=== PATIENT | female | born 1965 | race Caucasian/White ===

== ENCOUNTER 2019-05-09 05:58 | Emergency (ER) | payer OTHER, SELFPAY ==
--- NOTE | 2019-05-09 06:11 | W.ED.GENADLT ---
HPI - General Adult General: Chief complaint: Abdominal Pain Stated complaint: Side pain Time Seen by Provider: 05/09/19 06:03 History of Present Illness: HPI narrative: 53-year-old female presents complaining of intermittent abdominal cramping pain she describes as very severe she denies any medication melena hematemesis coffee-ground emesis she is very nauseated but is not had any vomiting. She denies dysuria urgency or frequency no hematuria. Has been intermittent the last couple days she did have a bowel movement yesterday. No one else in the home is been sick. She not had any diarrhea. Onset (ago): day(s) Location: abdomen Radiation: back Severity: severe Quality: aching Pain Consistency: intermittent Relieving factors: rest Exacerbating factors: eating Associated symptoms: Reports nausea; Deny chest pain, dyspnea, malaise, rash or vomiting Review of Systems Const: Denies: fever, chills, body aches, change in appetite, fatigue or malaise ENMT: Denies: throat pain, ear pain, nasal discharge or nasal congestion Card: Denies: chest pain, edema, shortness of breath on exertion or shortness of breath when lying down Resp: Denies: shortness of breath, productive cough or non-productive cough GI: Reports: abdominal pain, nausea, constipation and bloating; Denies: vomiting, vomiting blood, coffee grounds in vomit, diarrhea, blood in stool or black tarry stool : Denies: flank pain, difficulty urinating, painful urination, urinary frequency or urinary urgency Skin/Breast: Denies: rash or itching PFSH ED PFSH: Social History Smoking and tobacco status: current every day smoker Physical Exam Const: COMMON NORMALS: no apparent distress GENERAL APPEARANCE: cooperative and comfortable ORIENTATION/CONSCIOUSNESS: Yes awake, Yes oriented to person, Yes oriented to place and Yes oriented to time HENMT: COMMON NORMALS: normocephalic, head/scalp atraumatic, hearing grossly normal bilaterally, external ears normal, EAC's normal, TM's normal bilaterally, nasal mucous membranes and turbinates normal, moist oral mucous membranes and oropharynx normal HEAD & SCALP: normocephalic and atraumatic NOSE: nasal mucous membranes and turbinates normal EXTERNAL EAR: Yes external ears normal EXTERNAL AUDITORY CANAL: EAC's normal TYMPANIC MEMBRANE: TM's normal bilaterally Eye: COMMON NORMALS: PERRL, EOMs intact bilaterally, conjunctivae normal and no scleral icterus CONJUNCTIVA: Yes conjunctivae normal PUPIL: Yes PERRL Neck/C-Spine: COMMON NORMALS: full ROM, no lymphadenopathy, supple and no JVD Lymph: LYMPHATIC: no lymphadenopathy noted and no lymphedema noted Resp: COMMON NORMALS: normal respiratory effort, no retractions, no use of accessory muscles and clear to auscultation bilaterally AUSCULTATION: clear to auscultation bilaterally Cardio: COMMON NORMALS: no JVD, regular rate, regular rhythm and no murmurs RATE: regular rate RHYTHM: regular rhythm GI: COMMON NORMALS: no hepatosplenomegaly AUSCULTATION: Yes normoactive bowel sounds PALPATION: Yes tender (Diffuse abdominal tenderness with no guarding), No guarding and Yes no hepatosplenomegaly Extremity: COMMON NORMALS: normal to inspection, normal capillary refill, no clubbing, cyanosis or edema, no calf tenderness and no pedal edema Neuro: SENSORIUM/ORIENTATION: Yes oriented to person, Yes oriented to place and Yes oriented to time Skin: COMMON NORMALS: no rashes or lesions noted GENERAL SKIN EXAM: no rashes or lesions noted Course ED course: Reviewed CT and lab findings. Treat with mag citrate push fluids start MiraLAX daily Vital Signs: Vital signs: Vital Signs Temperature 97.2 F L 05/09/19 06:18 Pulse Rate 93 05/09/19 09:33 Respiratory Rate 18 05/09/19 09:33 Blood Pressure 123/85 05/09/19 09:33 Pulse Oximetry 99 05/09/19 09:33 [facility] - General Adult Lab Data: Labs: Lab Results 05/09/19 05/09/19 05/09/19 Range/Units 06:11 06:11 07:10 WBC 10.3 H (4.0-10.0) 10^3/ uL RBC 4.51 (4.1-5.3) 10^6/u L Hgb 12.9 (11.5-15.3) g/dL Hct 40.3 (37.0-47.0) % MCV 89.4 (81-99) fL MCH 28.6 (28.0-34.0) pg MCHC 32.0 (30.0-36.0) g/dL RDW 13.1 (12.1-15.1) % Plt Count 250 (130-400) 10^3/c mm MPV 9.1 (7.4-10.4) fL Neut % (Auto) 41.4 % Lymph % (Auto) 46.1 % [place] % (Auto) 8.7 % Eos % (Auto) 3.0 % Baso % (Auto) 0.6 % Neut # (Auto) 4.3 (1.8-7.7) 10^3/u L Lymph # (Auto) 4.8 (0.8-4.8) 10^3/u L [place] # (Auto) 0.9 (0.2-0.9) 10^3/u L Eos # (Auto) 0.3 (0.0-0.8) 10^3/u L Baso # (Auto) 0.1 (0.0-0.1) 10^3/u L Nucleated RBC % (a uto) 0 % Nucleated RBCs # 0.0 /100WBC Sodium 138 (136-145) mmol/L Potassium 4.0 (3.5-5.1) mmol/L Chloride 102 (98-107) mmol/L Carbon Dioxide 25 (22-29) mmol/L Anion Gap 15.0 (5-19) BUN 20 (6-20) mg/dL Creatinine 1.0 H (0.5-0.9) mg/dL GFR Calculation 57.6 L (90-130) mL/min Glucose 99 (65-115) mg/dL Calcium 9.6 (8.5-10.5) mg/dL Total Bilirubin 0.2 (0.15-1.2) mg/dL AST 22 (0-32) U/L ALT 22 (0-33) U/L Alkaline Phosphata se 96 (35-105) IU/L Total Protein 7.4 (6.6-8.7) g/dL Albumin 4.3 (3.5-5.2) g/dL Globulin 3.1 (1.3-4.6) g/dL Lipase 45 (13-60) U/L Urine Color Yellow (Yellow) Urine Appearance Clear (CLEAR) Urine pH 5 (5-7) Ur Specific Gravit y 1.015 (1.005-1.030) Urine Protein Neg (Negative) Urine Glucose (UA) Norm (Normal) Urine Ketones Negative (Negative) Urine Occult Blood 2+ H (Negative) Urine Nitrate Negative (Negative) Urine Bilirubin Neg (NEGATIVE) Urine Urobilinogen Norm (Negative) mg/dL Ur Leukocyte Zayda ase Negative (Negative) Urine RBC 0-4 H (0-2) /hpf Urine WBC Rare (0-5) /hpf Ur Squamous Epith Cells 0-4 H (0-5) Urine Bacteria Trace (NONE) Discharge Plan Discharge Patient Disposition: Home, Self-Care Clinical Impression: Constipation Condition: Stable Prescriptions: New magnesium citrate Solution 150 ml PO Q8H PRN (Reason: constipation) Qty: 296 RF: 0 No Action lisinopril 2.5 mg Tablet 2.5 mg PO DAILY RF: 0 spironolactone 25 mg Tablet 25 mg PO DAILY RF: 0 atorvastatin 40 mg Tablet 40 mg PO DAILY RF: 0 carvedilol 12.5 mg Tablet 12.5 mg PO BID RF: 0 mirtazapine 15 mg Tablet,Disintegrating 15 mg PO DAILY RF: 0 Aspir-Low 81 mg Tablet,Delayed Release (Dr/Ec) 81 mg PO DAILY RF: 0 furosemide 40 mg Tablet 40 mg PO QAM RF: 0 nitroglycerin 0.4 mg Tablet, Sublingual 0.4 mg SUBLINGUAL Q5M RF: 0 Discharge Orders: Discharge Order (Routine); Ordered 05/09/19 Ordered By: Tad Merrill Referrals: Ezra Shirley MD [Family Provider] - Discharge Activity: Resume usual activity Activity Restrictions/Additional Instructions: Use mag citrate to achieve relief of constipation. Increase fiber in your diet and add MiraLAX 1 capful p.o. daily. 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
[2019-05-09 06:18] VITALS: BP 119/80; RESP 18; TEMP 36.2; O2SAT 99; BMI 18.8
[2019-05-09 06:26] VITALS: BP 106/73; PULSE 87; RESP 18; O2SAT 99
--- NOTE | 2019-05-09 06:26 | PC.NURSE ---
Addendum entered by Jass Jackson 05/09/19 06:27: Introduced self to patient and initiated vital signs. Patient presents A&O x 4. NAD, ABCs intact, MAEW and agreeable to treatment. Respirations are even and unlabored. Pt states medications taken before coming to ER are AZO. Pt states that the chief complaint for the ER visit today is due to right side flank pain. Pt also complaining of n/a Pt denies any vision disturbances or lightheadedness. Bed left in lowest position in semi-fowlers with side rails up.Reassured patient of needs and will continue to monitor. Awaiting provider at bedside. Original Note: Introduced self to patient and initiated vital signs. Patient presents A&O x 4. NAD, ABCs intact, MAEW and agreeable to treatment. Respirations are even and unlabored. Pt states medications taken before coming to ER are n/a . Pt that the chief complaint for the ER visit today is due to Pt also complaining of . IV observed in . Pt denies any vision disturbances or lightheadedness. Bed left in lowest position in semi-fowlers with side rails up.Reassured patient of needs and will continue to monitor. Awaiting provider at bedside.
--- NOTE | 2019-05-09 06:27 | XR_ITS ---
WS: [id number] XR chest 1V portable [id number] REASON FOR EXAM: dyspnea/cough FINDINGS: A single electrode pacemaker is identified extends from the left side. Nipples are well identified bilaterally. The lung العلي appear to be well aerated. There is no pneumonia, pleural effusion, pulmonary edema, or mass effect. XR/XR chest 1V portable [id number] IMPRESSION: Negative chest for active pathology. A 6 single electrode pacemaker seen extends from the left side.
[2019-05-09 07:04] LABS: Alanine Aminotransferase 22 U/L (0-33); Albumin Level 4.3 g/dL (3.5-5.2); Alkaline Phosphatase 96 IU/L (35-105); Aspartate Amino Transferase 22 U/L (0-32); Blood Urea Nitrogen 20 mg/dL (6-20); Calcium 9.6 mg/dL (8.5-10.5); Carbon Dioxide 25 mmol/L (22-29); Chloride 102 mmol/L (98-107); Globulin 3.1 g/dL (1.3-4.6); Glomerular Filtration Rate 57.6 mL/min (90-130); Glucose 99 mg/dL (65-115); Lipase 45 U/L (13-60); Sodium 138 mmol/L (136-145); Total Bilirubin 0.2 mg/dL (0.15-1.2); Total Protein 7.4 g/dL (6.6-8.7)
[2019-05-09 07:08] LABS: Basophils # 0.1 10^3/uL (0.0-0.1); Basophils % 0.6 %; Eosinophils # 0.3 10^3/uL (0.0-0.8); Hematocrit 40.3 % (37.0-47.0); Hemoglobin 12.9 g/dL (11.5-15.3); Lymphocytes # 4.8 10^3/uL (0.8-4.8); Lymphocytes % 46.1 %; Mean Corpuscular Hemoglobin 28.6 pg (28.0-34.0); Mean Corpuscular Volume 89.4 fL (81-99); Mean Platelet Volume 9.1 fL (7.4-10.4); Monocytes # 0.9 10^3/uL (0.2-0.9); Monocytes % 8.7 %; Neutrophils # 4.3 10^3/uL (1.8-7.7); Neutrophils % 41.4 %; Nucleated Red Blood Cells % 0 %; Platelet Count 250 10^3/cmm (130-400); Red Blood Count 4.51 10^6/uL (4.1-5.3); Red Cell Distribution Width 13.1 % (12.1-15.1); White Blood Count 10.3 10^3/uL (4.0-10.0)
[2019-05-09] MEDS: sodium chloride 0.9% 1,000 ML 999 ML IV (07:28)
[2019-05-09] MEDS: ondansetron 2 mg/ML SDV 2 mL 4 MG IVP (07:28)
[2019-05-09] MEDS: morphine 4 mg/mL SDV 1 mL IVP (07:30)
[2019-05-09 07:40] LABS: Add Urine Microscopic? YES; Bilirubin Urine Neg (NEGATIVE); Blood Urine 2+ (Negative); Glucose Urine UA Norm (Normal); Ketones Urine Negative (Negative); Leukocyte Esterase Urine Negative (Negative); Nitrate Urine Negative (Negative); Protein Urine Neg (Negative); Specific Gravity, Urine 1.015 (1.005-1.030); Urine Appearance Clear (CLEAR); Urine Color Yellow (Yellow); Urobilinogen Urine Norm (Negative); pH Urine 5 (5-7)
--- NOTE | 2019-05-09 07:48 | CTR_ITS ---
PROCEDURE INFORMATION: Exam: CT Abdomen And Pelvis Without Contrast Exam date and time: 05/09/2019 8:03 AM Age: 53 years old Clinical indication: Abdominal pain; Flank; Right; Additional info: Hematuria TECHNIQUE: Imaging protocol: Computed tomography of the abdomen and pelvis without contrast. Total DLP: 485.45 mGy-cm Radiation optimization: All CT scans at this facility use at least one of these dose optimization techniques: automated exposure control; mA and/or kV adjustment per patient size (includes targeted exams where dose is matched to clinical indication); or iterative reconstruction. COMPARISON: No relevant prior studies available. FINDINGS: Detailed evaluation of the abdominal and pelvic viscera is somewhat limited in the absence of intravenous contrast. Tubes, catheters and devices: AICD with associated beam hardening artifact. Lungs: Interstitial prominence, trace dependent airspace disease, and parenchymal stranding. Liver: No focal hepatic mass. Gallbladder and bile ducts: No cholelithiasis or biliary ductal dilatation. Pancreas: No pancreatic mass or ductal dilatation. Spleen: No splenomegaly. Adrenals: Subtle adrenal nodularity. Kidneys and ureters: Normal renal morphology. No hydronephrosis or urolithiasis. Stomach and bowel: Questionable wall thickening in the nondistended stomach. Colonic dilatation and prominent stool. Diverticula, without pericolonic inflammation. Appendix: No acute appendicitis. Intraperitoneal space: No significant free fluid. Vasculature: Vascular calcification. Normal caliber of the abdominal aorta. Lymph nodes: Subcentimeter lymph nodes. Bladder: Unremarkable bladder. Reproductive: Unremarkable as visualized. Bones/joints: Osteopenia, degenerative change, disc bulging. CT/CT kidney stone [id number] IMPRESSION: 1. No hydronephrosis or urolithiasis. 2. Colonic dilatation and prominent stool. 3. Additional findings as described above. Radiation Dose CTDIVOL = (mGy): DLP = 485.45 (mGy-cm)
[2019-05-09 08:12] LABS: Bacteria Urine TRACE; RBC Urine 0-4 /hpf (0-2); Squamous Epithelial Cell Urine 0-4 (0-5); WBC Urine RARE /hpf (0-5)
[2019-05-09 08:13] LABS: Add Urine Culture? No
[2019-05-09 09:25] VITALS: BP 123/85; PULSE 93; O2SAT 99
[2019-05-09 09:33] VITALS: BP 123/85; PULSE 93; RESP 18; O2SAT 99
== END 2019-05-09 09:34 | disposition home or self-care (01) ==
PROVIDERS: Emergency Provider Family Medicine; Family Provider Family Medicine
DX: K59.00 Constipation, unspecified (principal); F17.200 Nicotine dependence, unspecified, uncomplicated
CPT/HCPCS: 71045; 74176; 80053; 81001; 83690; 85025; 96361; 96374; 96375; 99283; J2270; J2405; J7030

== ENCOUNTER → 2019-09-17 14:00 | Outpatient (BNVA) | payer OTHER, MEDICARE, SELFPAY | PROVIDERS: Family Provider Family Medicine; Visit Provider Nurse Practitioner | DX: R05 Cough (principal) | CPT/HCPCS: 87635 ==

== ENCOUNTER → 2020-01-07 14:32 | Outpatient (BNVA) | payer OTHER, MEDICARE, SELFPAY | PROVIDERS: Family Provider Family Medicine; PCP Family Medicine; Visit Provider Family Medicine | DX: Z11.59 Encounter for screening for other viral diseases (principal) | CPT/HCPCS: 87635 ==

== ENCOUNTER 2020-02-29 08:19 | Outpatient (CLI) | payer OTHER, MEDICARE, SELFPAY ==
--- NOTE | 2020-02-29 08:36 | USCV_ITS ---
Alexus Cerda Age: 54 Gender: F : 1965 Exam Date: 02/29/2020 08:57 Ordering Phys: Yael King NP Technologist: Dennis Bonner [place] [facility] [place]: CAD BP: 94 / 60 HR: 56 Rhythm: Sinus Technical Quality: Good MEASUREMENTS (Male / Female) Normal Values 2D ECHO LV Diastolic Diameter PLAX 6.0 cm 4.2 - 5.9 / 3.9 - 5.3 cm LV Systolic Diameter PLAX 4.8 cm IVS Diastolic Thickness 1.1 cm 0.6 - 1.0 / 0.6 - 0.9 cm IVS Systolic Thickness 1.2 cm LVPW Diastolic Thickness 0.9 cm 0.6 - 1.0 / 0.6 - 0.9 cm LVPW Systolic Thickness 1.2 cm LVOT Diameter 2.1 cm LV Ejection Fraction 2D Teich 40.1 % LV Ejection Fraction MOD 2C 57.1 % LV Ejection Fraction 2C AL 56.4 % LA Diameter 4.0 cm LA Width 3.8 cm LA Height 3.9 cm RA Width 3.6 cm RA Height 3.4 cm Aorta at Sinotubular Diameter 2.1 cm M-MODE LV Diastolic Diameter MM 6.7 cm 4.2 - 5.9 / 3.9 - 5.3 cm LV Systolic Diameter MM 5.2 cm LV Ejection Fraction MM Teich 42.7 % IVS Diastolic Thickness MM 0.9 cm 0.6 - 1.0 / 0.6 - 0.9 cm IVS Systolic Thickness MM 1.3 cm LVPW Diastolic Thickness MM 1.1 cm 0.6 - 1.0 / 0.6 - 0.9 cm LVPW Systolic Thickness MM 0.0 cm RV Diastolic Diameter MM 1.7 cm Aortic Annulus Diameter 3.9 cm LA Ao Ratio MM 1.2 MV E Point Septal Separation 2.9 cm DOPPLER AV Peak Velocity 115.0 cm/s LVOT Peak Velocity 103.0 cm/s AV Area Cont Eq vti 2.8 cm squared AV Area Cont Eq pk 3.0 cm squared MV Area PHT 6.9 cm squared Mitral E to A Ratio 1.1 MV E' Velocity 135.0 cm/s TR Peak Velocity 251.5 cm/s TR Peak Gradient 25.3 mmHg Right Atrial Pressure 3.0 mmHg Pulmonary Artery Systolic Pressu 28.3 mmHg PV Peak Velocity 64.0 cm/s FINDINGS Left Ventricle Markedly dilated left ventricular cavity size. Severely decreased left ventricular systolic function. Left ventricular ejection fraction is estimated at 20 %. Severe global left ventricular hypokinesis. Abnormal septal motion consistent with conduction abnormality. Right Ventricle Normal right ventricular size and systolic function. Right ventricular systolic pressure 31 mmHg. Pacemaker wire visualized in the right ventricle. Right Atrium Pacemaker wire in the right atrial cavity. Left Atrium Moderately increased left atrial size. Mitral Valve Moderately thickened mitral valve. Restricted movement of posterior mitral valve leaflet. No mitral valve stenosis. Moderate-severe posteriorly directed mitral valve regurgitation. Aortic Valve Probably tricuspid aortic valve. No aortic valve stenosis. Trace aortic valve regurgitation. Tricuspid Valve Structurally normal tricuspid valve. No tricuspid valve stenosis. Mild tricuspid valve regurgitation. Pulmonic Valve Pulmonic valve not well visualized. Pericardium No pericardial effusion. Aorta Normal-sized aortic root. CONCLUSIONS 1. Markedly dilated left ventricular cavity size. Severely decreased left ventricular systolic function. Left ventricular ejection fraction is estimated at 20 %. Severe global left ventricular hypokinesis. 2. Moderately thickened mitral valve. Restricted movement of posterior mitral valve leaflet. Moderate-severe posteriorly directed mitral valve regurgitation. 3. Mild tricuspid valve regurgitation. 4. Pulmonary artery pressure estimated at 31 mmHg. 5. No prior similar studies to compare. Yazmin Ayers MD (Electronically Signed) Final Date: 29 February 2020 16:51 S
== END 2020-02-29 08:20 | disposition home or self-care (01) ==
LOC: RAD 08:27
PROVIDERS: PCP Family Medicine; Visit Provider Nurse Practitioner Family
DX: I42.8 Other cardiomyopathies (principal); I50.22 Chronic systolic (congestive) heart failure; I08.1 Rheumatic disorders of both mitral and tricuspid valves
CPT/HCPCS: 93306

== ENCOUNTER 2020-07-29 13:19 | Emergency (ER) | payer OTHER, MEDICARE, MEDICAID, SELFPAY ==
[2020-07-29 13:22] VITALS: BP 103/63; PULSE 102; RESP 16; TEMP 36.1; O2SAT 97; BMI 17.6
[2020-07-29 13:26] VITALS: PULSE 98; O2SAT 99
--- NOTE | 2020-07-29 13:34 | XR_ITS ---
WS: [id number] Right wrist, 2 views, 07/29/2020 Clinical Data: trauma Comparison: Right wrist, 01/11/2015 Findings: No fractures or dislocations are seen. The carpal bones are intact. There is no soft tissue swelling. The distal radius and ulna are not remarkable. XR/XR wrist RT 2V [id number] Impression: Negative right wrist.
--- NOTE | 2020-07-29 13:39 | ED_ITS ---
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 Complaint: extremity pain and extremity swelling Pain Consistency: constant Location: right and upper extremity Severity scale (1-10): 6 Quality: constant Review of Systems General: Reports: 10 or more systems reviewed and unremarkable except in HPI and below Neuro: Denies: numbness in extremities PFSH ED PFSH: Social History Smoking and tobacco status: current every day smoker Physical Exam Const: COMMON NORMALS: no acute distress, patient oriented x3, no limitations and alert GENERAL APPEARANCE: cooperative and comfortable ORIENTATION/CONSCIOUSNESS: Yes awake, Yes oriented to person, Yes oriented to place and Yes oriented to time HENMT: COMMON NORMALS: normocephalic, atraumatic, external ears normal, EAC's normal, TM's normal bilaterally and Normal external nose present HEAD & SCALP: normal to inspection, normocephalic and atraumatic FACE & SINUS: normal facial exam, sinuses nontender and face symmetric NOSE: Normal external nose present, Normal nares present and No nasal discharge present EXTERNAL EAR: Yes external ears normal EXTERNAL AUDITORY CANAL: EAC's normal TYMPANIC MEMBRANE: TM's normal bilaterally MOUTH: Normal oral and palatal mucosa present, lip normal and tongue normal THROAT: posterior oropharynx normal, tonsils normal and uvula midline Eye: COMMON NORMALS: Equal, round and reactive pupils present, EOMs intact bilaterally and conjunctivae normal GENERAL EYE: appearance normal, both eyes and all related structures and normal light reflex EYELID: eyelids normal CONJUNCTIVA: Yes conjunctivae normal PUPIL: Yes Equal, round and reactive pupils present EOM: Yes EOM abnormal DIRECT OPHTHALMOSCOPY: Yes normal light reflex Neck/C-Spine: COMMON NORMALS: full ROM, no lymphadenopathy, supple, no meningeal signs, no JVD and Thyroid normal GENERAL: Yes normal visual inspection THYROID: Thyroid normal CERVICAL SPINE: Yes cervical ROM normal and Yes normal cervical lordosis Lymph: LYMPHATIC: no lymphadenopathy noted Chest: COMMONS NORMALS: normal inspection of the chest and normal palpation of entire chest wall Resp: COMMON NORMALS: normal respiratory effort, No retractions and clear to auscultation bilaterally AUSCULTATION: clear to auscultation bilaterally Cardio: COMMON NORMALS: no JVD, regular rate, regular rhythm, S1 normal heart sound present, S2 normal heart sound present, No gallops present (Cardio), No clicks present (Cardio), No murmurs present (Cardio), No rub (Cardio) and Peripheral pulses 2+ throughout RATE: regular rate RHYTHM: regular rhythm HEART SOUNDS: S1 normal heart sound present and S2 normal heart sound present PERIPHERAL PULSES: Peripheral pulses 2+ throughout GI: COMMON NORMALS: Normal to inspection, nondistended, normoactive bowel sounds present, Soft to palpation, non-tender and no masses PALPATION: Yes Soft to palpation : COMMON NORMALS: Yes no CVA tenderness and Yes normal external appearance BLADDER/KIDNEY EXAM: Yes no CVA tenderness Back/Pelvis: COMMON NORMALS: no CVA tenderness, thoracic and lumbar spine normal to inspection, no thoracic nor lumbar tenderness and thoraco-lumbar ROM normal Extremity: COMMON NORMALS: normal to inspection, full ROM, capillary refill normal, no joint enlargement, no clubbing, cyanosis or edema, no calf tenderness and no pedal edema GENERAL: Yes normal exam except as noted RIGHT UPPER EXTREMITY: Yes wrist Right wrist: Yes inspection (no deformity), Yes ROM (limited) and Yes neurovascular exam (warm and cap refill less than 2 seconds) Neuro: COMMON NORMALS: patient oriented x3, moves all extremities, no focal motor deficits, no sensory deficits noted and gait normal SENSORIUM/ORIENTATION: Yes alert, Yes oriented to person, Yes oriented to place and Yes oriented to time MENINGEAL SIGNS: Yes no meningeal signs Psych: COMMON NORMALS: mental status grossly normal, Normal thought process present, cooperative, normal affect, speech normal and activity/motor behavior normal SPEECH: Yes normal speech THOUGHT PROCESS: Normal thought process present Skin: COMMON NORMALS: no rashes or lesions noted, no wounds and turgor normal GENERAL SKIN EXAM: no rashes or lesions noted and turgor normal Course ED course: Pt presents to ER with complaints of r wrist pain after falling in garden. No visualized deformity but unable to tolerate passive ROM. Neurovascularly intact. Awaiting xray results. Reevaluation(s): Reevaluation #1: XRAY negative. Will recommend RICE therapy and wrist splint. Will proceed with DC. Time: 14:43 Vital Signs: Vital signs: Vital Signs Temperature 96.9 F L 07/29/20 13:22 Pulse Rate 98 07/29/20 13:26 Respiratory Rate 16 07/29/20 13:22 Blood Pressure 103/63 07/29/20 13:22 Pulse Oximetry 99 07/29/20 13:26 MDM - Extremity (Nontraumatic) Imaging Data^: Other Xray: Radiologist's impression: [address] [address] XRay Report Signed Patient: Alexus Cerda Unit #: [id number] : 1965 Age/Sex: 55 / F ADM Date: 07/29/20 Loc: ER Room/Bed: Attending Dr: Ordering Provider/Ordering MD: Hiral Grimm NP Date of Service: 07/29/20 Procedure(s): XR wrist RT 2V [id number] Accession Number(s): [id number] Report Number: [id number] WS: [id number] Right wrist, 2 views, 07/29/2020 Clinical Data: trauma Comparison: Right wrist, 01/11/2015 Findings: No fractures or dislocations are seen. The carpal bones are intact. There is no soft tissue swelling. The distal radius and ulna are not remarkable. XR/XR wrist RT 2V [id number] Impression: Negative right wrist. Dictated By: Aleida Gutierres MD Signed By: Aleida Gutierres MD Signed Date/Time: 07/29/201426 DD/ 25 Discharge Plan Discharge Condition: Stable Prescriptions: New tramadol 50 mg tablet 25 mg PO Q6H PRN (Reason: pain) Qty: 10 RF: 0 No Action azithromycin 250 mg tablet See Rx Instructions PO .COMPLEX Qty: 6 RF: 0 lisinopril 2.5 mg Tablet 2.5 mg PO DAILY RF: 0 spironolactone 25 mg Tablet 25 mg PO DAILY RF: 0 atorvastatin 40 mg Tablet 40 mg PO DAILY RF: 0 carvedilol 12.5 mg Tablet 12.5 mg PO BID RF: 0 mirtazapine 15 mg Tablet,Disintegrating 15 mg PO DAILY RF: 0 Aspir-Low 81 mg Tablet,Delayed Release (Dr/Ec) 81 mg PO DAILY RF: 0 furosemide 40 mg Tablet 40 mg PO QAM RF: 0 nitroglycerin 0.4 mg Tablet, Sublingual 0.4 mg SUBLINGUAL Q5M RF: 0 magnesium citrate Solution 150 ml PO Q8H PRN (Reason: constipation) Qty: 296 RF: 0 Discharge Orders: Discharge ED (Routine); Ordered 07/29/20 Ordered By: Hiral Grimm Referrals: Ezra Shirley MD [Primary Care Provider] - Discharge Diet: Usual diet Discharge Activity: Resume usual activity and Increase activity as tolerated Activity Restrictions/Additional Instructions: Tykenol and motrin for mild to moderate pain Ultram for more significant pain Wear splint for 5 to 7 days but ensure to remove and do passive range of motion rotations to help with healing. Rest, Ice, Elevate Coding Level of Care Code ED Community Development Worker for Fritz Martinez
[2020-07-29] MEDS: HYDROcodone-acetaminophen 5-325 mg Tablet 1 TAB PO (14:08)
== END 2020-07-29 14:58 | disposition home or self-care (01) ==
PROVIDERS: Emergency Provider Nurse Practitioner Family; PCP Family Medicine
DX: M25.531 Pain in right wrist (principal); Z79.82 Long term (current) use of aspirin; F17.210 Nicotine dependence, cigarettes, uncomplicated
CPT/HCPCS: 29125; 73100; 99283

== ENCOUNTER 2021-01-10 10:20 | Outpatient (CLI) | payer OTHER, MEDICARE, MEDICAID, SELFPAY ==
--- NOTE | 2021-01-10 10:29 | XRR_ITS ---
PROCEDURE INFORMATION: Exam: XR Lumbosacral Spine Exam date and time: 01/10/2021 10:29 AM Age: 55 years old Clinical indication: Low back pain; Prior surgery; Surgery date: 6+ months; Surgery type: Defibrillator; Patient HX: [place] pain since July of this year, pain has worsened over time and runs from middle low back to left side to hip and all the way down to her toes. ; Additional info: Left lumbar radiculopathy TECHNIQUE: Imaging protocol: XR of the lumbosacral spine. Views: 2 or 3 views. COMPARISON: CT kidney stone [id number] 05/09/2019 8:18 AM FINDINGS: Bones/joints: Vertebral bodies and posterior elements appear intact and normally aligned. Mild disc space narrowing at L4/5 and L5/S1 similar to prior, with posterior osteophyte bridging L5/S1. Limbus vertebra again noted at anterior/superior endplate of L4. Soft tissues: Unremarkable. XR/XR lumbar spine 2-3V* [id number] IMPRESSION: 1. No acute findings. 2. Lower lumbar degenerative changes similar to prior CT. Radiation Dose CTDIVOL = (mGy): DLP = (mGy-cm)
== END 2021-01-10 10:21 | disposition home or self-care (01) ==
PROVIDERS: PCP Family Medicine; Visit Provider Family Medicine
DX: M54.16 Radiculopathy, lumbar region (principal)
CPT/HCPCS: 72100

== ENCOUNTER 2021-04-20 08:43 | Outpatient (CLI) | payer OTHER, MEDICARE, MEDICAID, SELFPAY ==
--- NOTE | 2021-04-20 09:00 | IR_ITS ---
WS: [id number] MYELOGRAM LUMBAR SPINE Fluoroscopic guided lumbar myelogram CLINICAL INFORMATION: M54.50 - Low back pain, unspecified COMPARISON: None. TECHNIQUE: The procedure, including risks, benefits, and complications, were discussed with the patie nt who agreed to proceed. A timeout was performed to confirm correct patient, procedure, and site. Using sterile technique, the patient was prepped and draped in the usual sterile fashion. After admin istration of local anesthesia using 1% preservative-free lidocaine and using fluoroscopic guidance, a 22-gauge spinal needle was advanced into the subarachnoid space at the left L5-S1 level. Subsequentl y, after test injection, 13 cc of Omnipaque 240 was administered into the thecal sac. The needle was removed and hemostasis was achieved. Spot fluoroscopic images were obtained. FLUOROSCOPIC TIME: 2.9 minutes. Spot fluoroscopic images demonstrate partially visualized cardiac pacer leads. Pelvic phleboliths. 5 nonrib-bearing lumbar vertebral bodies. Disc space narrowing worse at L3-L4 L4-L5 and L5-S1. Aortic c alcification. Mild/moderate facet arthropathy L4-L5 and L5-S1. No instability on flexion-extension. Please see CT myelogram report for additional detail. IR/IR myelogram [place] lumbar [id number] IMPRESSION: 1. Uncomplicated lumbar myelogram. 2. Disc space narrowing worse at L3-L4 L4-L5 and L5-S1. 3. No instability on flexion-extension.
[2021-04-20 09:35] LABS: INR 0.88 (0.8-1.2)
[2021-04-20] MEDS: iohexol 240 mg/mL 50 mL Btl INTRATHECA (10:32)
--- NOTE | 2021-04-20 11:30 | CT_ITS ---
WS: [id number] CT LUMBAR MYELOGRAM TECHNIQUE: CT myelogram of the lumbar spine with coronal and sagittal reformatted images. CLINICAL INFORMATION: M54.50 - Low back pain, unspecified COMPARISON: None. DLP: 949.[address] scans at [facility] use at least one of these dose optimization techniques: automated e xposure control; mA and/or kV adjustment per patient size (includes targeted exams where dose is matc hed to clinical indication); or iterative reconstruction. FINDINGS: Normal lumbar alignment. No acute compression. No high-grade central canal stenosis. Mild disc bulgin g L3-L4 L4-L5 and L5-S1. Disc osteophyte complex L5-S1. L1-L2: Normal. L2-L3: Mild annular bulging with slight effacement of ventral thecal sac. Spinal canal and foramen ar e patent. L3-L4: Mild annular bulging with slight narrowing of the left greater than right subarticular recess. Left eccentric disc bulging with mild left and no significant right foraminal narrowing. Mild facet arthropathy. Spinal canal and right foramen are patent. L4-L5: Mild annular bulging with mild central canal stenosis. Broad-based shallow central protrusion with slight effacement of ventral thecal sac. Mild left and no significant right foraminal narrowing. Mild facet arthropathy. L5-S1: Disc osteophyte complex with endplate ridging. Central osteophyte protrusion with slight conta ct of the traversing left greater than right S1 nerve roots. Mild left greater than right foraminal n arrowing. Mild facet arthropathy. Slight atelectasis left lower lobe. Left adrenal lesion measuring 13 mm compatible with adenoma. Righ t adrenal gland is normal. Mild degenerative arthritis sacroiliac joints. CT/CT lumbar spine w con [id number] IMPRESSION: 1. Normal lumbar alignment. No acute compression. Mild disc bulging with desic cation worse at L3-L5. 2. Central osteophyte protrusion L5-S1 impinges the traversing left greater th an right S1 nerve roots bilaterally. 3. Correlation left S1 nerve root symptoms. Mild left foraminal narrowing with encroachment on the exiting left L5 nerve root. 4. Mild annular bulging L3-4 with slight narrowing of the left subarticular re cess and mild left L3-4 foraminal narrowing. 5. Mild annular bulging L4-5 with slight narrowing of the subarticular recess bilaterally and mild central canal stenosis. Mild facet arthropathy with ligame ntum flavum flavum hypertrophy. Mild left L4-5 foraminal narrowing. 6. Moderate facet arthropathy worse L5-S1.
== END 2021-04-20 08:44 | disposition home or self-care (01) ==
LOC: RAD 08:53
PROVIDERS: PCP Family Medicine; Visit Provider Physician Assistant
DX: M79.605 Pain in left leg (principal); M51.26 Other intervertebral disc displacement, lumbar region; M25.78 Osteophyte, vertebrae; M47.817 Spondylosis without myelopathy or radiculopathy, lumbosacral region
CPT/HCPCS: 62304; 72120; 72132; 85610

== ENCOUNTER → 2021-05-23 14:10 | Outpatient (BNVA) | payer OTHER, MEDICARE, MEDICAID, SELFPAY | PROVIDERS: PCP Family Medicine; Visit Provider Orthopaedic Surgery | DX: Z20.822 Contact with and (suspected) exposure to COVID-19 (principal); Z01.818 Encounter for other preprocedural examination | CPT/HCPCS: 87635; 87801 ==

== ENCOUNTER 2021-05-26 08:21 | Day surgery (SDC) | payer OTHER, MEDICARE, MEDICAID, SELFPAY ==
--- NOTE | 2021-05-25 13:12 | ECG_ITS ---
[facility] Test Date: 2021-05-25 Pat Name: Alexus Cerda Department: Room: Gender: Female Floor Layer: : 1965 Requested By: Amparo Zarco Order Number: [id number] Silva MD: Cheryl Hughes M.D. Measurements Intervals Turner Rate: 81 P: 62 HI: 143 QRS: 74 QRSD: 75 T: 66 QT: 402 QTc: 467 Interpretive Statements SINUS RHYTHM VOLTAGE CRITERIA FOR LVH [MEETS CRITERIA IN ONE OF: R(aVL), S(V1), R(V5), R(V5/V6)+S(V1)] NONSPECIFIC T-WAVE ABNORMALITY Compared to ECG 07/07/2017 18:03:58 Prolonged QT interval no longer present T-wave abnormality still present Electronically Signed On 05-25-2021 17:50:30 BLEACH TESTER by Cheryl Hughes M.D. [id number]
[2021-05-25 13:17] VITALS: BMI 19.6
--- NOTE | 2021-05-25 13:47 | P.ANESASSM_ITS ---
Pre-Anesthetic Assessment Height/Weight: Height 1.65 m Weight 53.524 kg Operation Date: 05/26/21 10:05 Proposed Procedures p Lumbar Spine Decompression L4/5, L5/S1 79493/08595/m48.062(Left) - Zafar Saeed, Familial anesthetic complications: None Social No alcohol Exam alert, oriented x 3, clear to auscultation bilaterally and regular rate & rhythm Airway Mallampati: Class II Dentition: false CV/HEM Congestive Heart Failure (hereditary - states she can achieve 4 METS without CP ) States she had echo done at [place] in February and her EF is up to 40% now. Says she will try to bring copy of report on her phone. Has Pacer defibrillator 2019 CONCLUSIONS ?1. Markedly dilated left ventricular cavity size. Severely ?decreased left ventricular systolic function. Left ventricular ?ejection fraction is estimated at 20 %.? Severe global left ?ventricular hypokinesis. ?2. Moderately thickened mitral valve.? Restricted movement of ?posterior mitral valve leaflet.? Moderate-severe posteriorly ?directed mitral valve regurgitation. ?3. Mild tricuspid valve regurgitation. ?4. Pulmonary artery pressure estimated at 31 mmHg. ?5.? No prior similar studies to compare. Anesthetic Plan ASA status: 3 Anesthesia: General Risk of > 500 ml blood loss (7ml/kg in children): No Medications/Allergies Home Medications Medication Instructions Recorded Confirmed Last Taken Type aspirin 81 mg tablet,delayed 81 mg PO DAILY 05/09/19 05/25/21 05/20/21 History release (Aspir-Low) atorvastatin 40 mg tablet 40 mg PO DAILY 05/09/19 05/25/21 1 Day Ago History ~05/08/19 carvedilol 12.5 mg tablet 12.5 mg PO BID 05/09/19 05/25/21 1 Day Ago History ~05/08/19 furosemide 40 mg tablet 40 mg PO QAM PRN 05/09/19 05/25/21 Unknown History lisinopril 2.5 mg tablet 2.5 mg PO DAILY 05/09/19 05/25/21 2 Days Ago History ~05/07/19 magnesium citrate 150 ml PO Q8H PRN #296 ml 05/09/19 05/25/21 Unknown Rx nitroglycerin 0.4 mg sublingual 0.4 mg SUBLINGUAL Q5M 05/09/19 05/25/21 Unknown History tablet spironolactone 25 mg tablet 25 mg PO DAILY 05/09/19 05/25/21 1 Day Ago History ~05/08/19 bupropion HCl 150 mg 24 hr tablet, 150 mg PO QAM 05/25/21 05/25/21 Unknown History extended release (Wellbutrin XL) gabapentin 100 mg tablet 100 mg PO TID 05/25/21 05/25/21 Unknown History Allergies Allergy/AdvReac Type Severity Reaction Status Date / Time No Known Allergies Allergy Verified 05/09/21 13:14 [facility] Anesthesia Social History Smoking and tobacco status: current every day smoker Data Anesthesia Cardiac Studies: Echocardiogram Ultrasound 02/29/20
[2021-05-25 13:56] LABS: Basophils # 0.1 10^3/uL (0.0-0.1); Basophils % 0.8 %; Eosinophils # 0.2 10^3/uL (0.0-0.8); Eosinophils % 2.2 %; Hematocrit 44.3 % (37.0-47.0); Hemoglobin 13.7 g/dL (11.5-15.3); Lymphocytes # 4.6 10^3/uL (0.8-4.8); Lymphocytes % 44.3 %; Mean Corpuscular HGB Conc 30.9 g/dL (30.0-36.0); Mean Corpuscular Hemoglobin 28.4 pg (28.0-34.0); Mean Corpuscular Volume 91.7 fl (81-99); Mean Platelet Volume 9.3 fL (7.4-10.4); Monocytes # 0.8 10^3/uL (0.2-0.9); Monocytes % 7.6 %; Neutrophils # 4.63 10^3/uL (1.8-7.7); Neutrophils % 44.9 %; Nucleated Red Blood Cells % 0 %; Platelet Count 276 10^3/cmm (130-400); Red Blood Count 4.83 10^6/uL (4.1-5.3); Red Cell Distribution Width 13.3 % (12.1-15.1); White Blood Count 10.3 10^3/uL (4.0-10.0)
[2021-05-25 14:24] LABS: Blood Urea Nitrogen 28 mg/dL (6-20); Calcium 10.1 mg/dL (8.5-10.5); Carbon Dioxide 20 mmol/L (22-29); Chloride 100 mmol/L (98-107); Glomerular Filtration Rate 57.1 mL/min (90-130); Glucose 92 mg/dL (65-115); Osmolality Calculated 283 mOsm/kg (285-295); Sodium 134 mmol/L (136-145)
[2021-05-25 14:34] LABS: Anion Gap 19.1 (5-19); Potassium 5.1 mmol/L (3.5-5.1)
[2021-05-26] VITALS (7 sets, daily range): BP systolic 80–117; BP diastolic 52–69; PULSE 53–71; RESP 16–20; TEMP 36.1–36.6; O2SAT 98–100
--- NOTE | 2021-05-26 | XR_ITS ---
WS: [id number] Lumbar spine, C-arm fluoroscopy, 05/26/2021 Clinical Data: lumbar stenosis with neurogenic claudation Comparison: None. Findings: Dr. Saeed performed a lumbar decompression. XR/XR lumbar spine 1V [id number] Impression: Lumbar decompression.
--- NOTE | 2021-05-26 | SCC_ITS ---
Procedure: 1. L4/5 laminectomy with partial facetectomy 2. L5/S1 lamminectomy with partial facetectomy 13.7 seconds of fluoroscopic guidance, for a cumulative dose of 1.75 mGy, was provided to Dr. Saeed by the radiology department. C-arm images of the lumbar spine were saved for the patient's permanent record. [facility]
[2021-05-26] MEDS: sodium chloride 0.9% 1,000 ML 30 ML IV (09:02)
--- NOTE | 2021-05-26 10:37 | P.ANESUD_ITS ---
Pre-Anesthetic Update Pre-Anesthetic Assessment: Date of Surgery/Procedure: 05/26/21 Preop Elyse gnosis: Lumbar Stenosis w/Neurogenic Claudication Proposed Procedure: Operation Date: 05/26/21 10:05 Proposed Procedures p Lumbar Spine Decompression L4/5, L5/S1 98599/32981/m48.062(Left) - Zafar H Darlin, DO Any changes to Pre-Anesthetic Assessment?: No Last Intake: Intake Last Liquid Date 05/25/21 Last Liquid Time 22:00 Last Solid Date 05/25/21 Last Solid Time 20:00 Labs Last 48hrs: Short CBC 05/25/21 Range/Units 13:40 WBC 10.3 H (4.0-10.0) 10^3/ uL Hgb 13.7 (11.5-15.3) g/dL Hct 44.3 (37.0-47.0) % MCV 91.7 (81-99) fl Plt Count 276 (130-400) 10^3/c mm Neut % (Auto) 44.9 % Neut # (Auto) 4.63 (1.8-7.7) 10^3/u L BMP 05/25/21 13:40 Sodium 134 L Potassium 5.1 Chloride 100 Carbon Dioxide 20 L BUN 28 H Creatinine 1.0 H Glucose 92 Calcium 10.1 Vitals: Temperature 97.9 F 05/26/21 08:31 Temperature Source Temporal Artery S can 05/26/21 08:31 Pulse Rate 66 05/26/21 08:31 Pulse Rhythm 05/26/21 08:38 Pulse Strength 3+ Normal 05/26/21 08:38 Respiratory Rate 16 05/26/21 08:31 Blood Pressure 80/52 05/26/21 08:31 Blood Pressure Elina n 61 05/26/21 08:31 Pulse Oximetry 99 05/26/21 08:31 Oxygen Delivery Me thod 05/26/21 08:38 Exam: Pre-Anes Outpt Exam: alert, oriented x 3, clear to auscultation bilaterally and regular rate & rhythm Cardiac Studies: Echocardiogram Ultrasound 02/29/20
--- NOTE | 2021-05-26 11:26 | W.PM.OPSUD ---
Surgery/Procedure H&P Update DATE OF PROCEDURE: May 26, 2021 DATE H&P PERFORMED: 05/09/21 H&P UPDATE INFORMATION: I have reviewed H&P completed within last 30 days, I have examined patient prior to procedure and No changes to prior documentation PREOP DIAGNOSIS: Lumbar Stenosis w/Neurogenic Claudication PLANNED PROCEDURE: Operation Date: 05/26/21 10:05 Proposed Procedures p Lumbar Spine Decompression L4/5, L5/S1 64845/60727/m48.062(Left) - Zafar Saeed DO
--- NOTE | 2021-05-26 12:54 | P.OP_ITS ---
Operative Report Date of procedure: May 26, 2021 Pre-op diagnosis: Preop Diagnosis Lumbar Stenosis w/Neurogenic Claudication Post-op diagnosis: same Procedure done: 1. L4/5 laminectomy with partial facetectomy 2. L5/S1 lamminectomy with partial facetectomy Surgeon: Zafar Saeed Compliance Consultant: Kan Ahn Estimated blood loss (mL): 50 Procedure: 1. L4/5 laminectomy with partial facetectomy 2. L5/S1 lamminectomy with partial facetectomy Patient is brought to the operative suite. After undergoing anesthesia they are placed in the prone position. All areas of impingement are well padded. Patient is then prepped and draped in the normal sterile fashion. A skin incision is made over the L4/5 level. This is confirmed under c-arm guidance. A series of dilators are passed and the tubular retractor is docked on the L4 lamina. A bovie is used to clear the soft tissue off the lamina and the L 4/5 facet joint. A high speed dhaval is then used to perform the laminectomy and take down the medial aspect of the L 4/5 facet joint. A kerrison rongeure was then used to take down the remaining lamina and smooth the edge of the laminectomy up to the point where the ligamentum flavum attaches. Attention was then brought to the medial aspect of the facet joint. The remaining medial aspect of the superior and inferior aspect of the facet joint were taken down with the kerrison from the pedicle of L4 to L 5. The facet joint had significant hypertrophy. Attention was then brought to the Ligamentum Flavum. The ligament was taken down from the lamina of L4 to L5 and out medially to the remaining facet joint. The ligament was thick. The dura was then exposed. The dura was in good repair. The L4 nerve was then traced with a curette out the L4/5 foramen and found to be adequately decompressed. The L5 nerve was traced with a curette around the L5 pedicle. The lateral recess was opened with a kerrison helping to further decompress the L5 nerve. Wound is then irrigated copiously with saline and surgiflo is used to stop any bleeding. The tubular retractor is removed and A skin incision is made over the L5/S1 level. This is confirmed under c-arm guidance. A series of dilators are passed and the tubular retractor is docked on the L5 lamina. A bovie is used to clear the soft tissue off the lamina and the L 5/S1 facet joint. A high speed dhaval is then used to perform the laminectomy and take down the medial aspect of the L 5/S1 facet joint. A kerrison rongeure was then used to take down the remaining lamina and smooth the edge of the laminectomy up to the point where the ligamentum flavum attaches. Attention was then brought to the medial aspect of the facet joint. The remaining medial aspect of the superior and inferior aspect of the facet joint were taken down with the kerrison from the pedicle of L5 to S1. The facet joint had significant hypertrophy. Attention was then brought to the Ligamentum Flavum. The ligament was taken down from the lamina of L5 to S1 and out medially to the remaining facet joint. The ligament was thick. The dura was then exposed. The dura was in good repair. The L5 nerve was then traced with a curette out the L5/S1 foramen and found to b e adequately decompressed. The S1 nerve was traced with a curette around the S1 pedicle. The lateral recess was opened with a kerrison helping to further decompress the S1 nerve. Wound is then irrigated copiously with saline and surgiflo is used to stop any bleeding. The tubular retractor is removed and the wound is closed with vicryl and monocryl suture. Glue is then used to protect the wound. A sterile dressing is then placed. Patient was then placed in the supine position and transferred to the PACU in stable condition.
[2021-05-26] MEDS: HYDROcodone-acetaminophen 5-325 mg Tablet 1 TAB PO (14:10)
--- NOTE | 2021-05-26 16:22 | ANE.PACU2 ---
Inpatient post-anesthesia follow up: Airway intact: Yes Vital signs: Temperature 97.9 F Pulse Rate 53 Respiratory Rate 16 Blood Pressure 96/60 Pulse Oximetry 100 Oxygen Delivery Me thod Room Air Oxygen Flow Rate 6 Fraction of Inspir ed Oxygen Hydration adequate: Yes Nausea and vomiting: No Pain level: 3 Mental status: Baseline
== END 2021-05-26 14:15 | disposition home or self-care (01) ==
PROVIDERS: Anesthesiology; PCP Family Medicine; Visit Provider Orthopaedic Surgery
PROC: (CPT 63005; principal; 2021-05-26 09:55)
DX: M48.062 Spinal stenosis, lumbar region with neurogenic claudication (principal); I50.9 Heart failure, unspecified; Z82.49 Family history of ischemic heart disease and other diseases of the circulatory system; Z79.82 Long term (current) use of aspirin; F17.210 Nicotine dependence, cigarettes, uncomplicated
CPT/HCPCS: 63047; 63048; 36415; 72020; 76000; 80048; 85025; 93005; J0690; J1100; J2370; J2405; J2704; J2710; J3010; J3490; J7030

== ENCOUNTER 2023-02-25 20:13 | Emergency (ER) | payer MEDICARE, MEDICAID, SELFPAY ==
--- NOTE | 2023-02-25 20:15 | XRR_ITS ---
PROCEDURE INFORMATION: Exam: XR Left Foot Exam date and time: 02/25/2023 8:29 PM Age: 57 years old Clinical indication: Injury or trauma; Other: Hurt lt foot; Blunt trauma; Left TECHNIQUE: Imaging protocol: Radiologic exam of the left foot. Views: 3 or more views. COMPARISON: No relevant prior studies available. FINDINGS: Bones/joints: No evidence of acute fracture or dislocation. No erosive disease. No significant degenerative change. Soft tissues: Normal. XR/XR foot LT min 3V* [id number] IMPRESSION: No acute bony injury.
[2023-02-25 20:29] VITALS: BP 124/75; PULSE 86; RESP 17; TEMP 36.4; O2SAT 100; BMI 17.8
[2023-02-25 20:47] VITALS: BP 119/63; PULSE 87; O2SAT 99
--- NOTE | 2023-02-25 20:54 | ED_ITS ---
HPI - Extremity Problem General: Chief complaint: Extremity Injury, Lower Stated complaint: Left Foot Injury Time Seen by Provider: 02/25/23 20:32 Source: patient Mode of arrival: wheelchair Limitations: no limitations History of Present Illness: Patient presents emergency department today for evaluation treatment of left midfoot pain. Patient states that she was getting out of her truck at the [facility] [facility] [employer] when she stepped down on her running board with her left foot. Patient states she did not hit it but thinks her foot got somewhat caught up in the running board. She states she did not fall and was able to go into the grocery store and shop with just a little bit of discomfort. However, she states after getting home through the evening she has had continued worsening of pain and is now unable to put any weight on the foot. She denies any previous injuries or surgeries to this foot. Review of Systems General: Reports: 10 or more systems reviewed and unremarkable except in HPI and below PFSH ED PFSH: Social History Smoking and tobacco/nicotine status: current every day tobacco/nicotine user Physical Exam Const: COMMON NORMALS: no acute distress, patient oriented x3 and alert HENMT: COMMON NORMALS: normocephalic, atraumatic and hearing grossly normal bilaterally HEAD & SCALP: normocephalic and atraumatic Eye: COMMON NORMALS: Equal, round and reactive pupils present, EOMs intact bilaterally and conjunctivae normal CONJUNCTIVA: Yes conjunctivae normal PUPIL: Yes Equal, round and reactive pupils present Neck/C-Spine: COMMON NORMALS: full ROM and no JVD Lymph: LYMPHATIC: no lymphadenopathy noted Resp: COMMON NORMALS: normal respiratory effort, No retractions and No use of accessory muscles Cardio: COMMON NORMALS: no JVD and regular rate RATE: regular rate Extremity: NARRATIVE EXTREMITY EXAM: No signs of obvious swelling, bruising, redness of the midfoot. Patient is nontender to the lateral and medial malleolus. No tenderness on the toes. Patient with full flexion extension capabilities of the toes and the ankle but reports radiating pain to the area of the midfoot where she is tender. Patient is tender to both medial and lateral side of the midfoot indicating through and through pain . Neuro: COMMON NORMALS: patient oriented x3 SENSORIUM/ORIENTATION: Yes alert Psych: COMMON NORMALS: mental status grossly normal, Normal thought process present, cooperative and normal affect THOUGHT PROCESS: Normal thought process present Skin: COMMON NORMALS: no rashes or lesions noted and turgor normal GENERAL SKIN EXAM: no rashes or lesions noted and turgor normal Course Vital Signs: Vital signs: Vital Signs Temperature 97.6 F 02/25/23 20:29 Pulse Rate 87 02/25/23 20:47 Respiratory Rate 17 02/25/23 20:29 Blood Pressure 119/63 02/25/23 20:47 Pulse Oximetry 99 02/25/23 20:47 Oxygen Delivery Me thod Room Air 02/25/23 20:47 MDM - Extremity (Nontraumatic) Medical Decision Making Patient presents emergency department today with complaints of left midfoot pain after an injury getting out of her truck. X-ray was read negative for signs of fracture but, given the tenderness, patient may have a foot contusion or more likely a foot sprain. Explained that this can be tender and sore for up to a week or so. We typically recommend conservative treatment with at home RICE therapy however, I am not comfortable with the patient being on crutches due to overall physical capabilities plus, patient has a ICD in her left upper chest which would most likely get pressure from the axillary crutch pad. Discussed with patient the option of a walking boot to help relieve direct pressure on the bottom of her foot but allow her to remain ambulatory. Patient agrees and would prefer a walking boot over crutches as well. Recommend follow-up appoint with primary care in 1 week if foot is still continue to have the same amount of pain and discomfort without any improvement with conservative management. Patient verbalizes understanding and agreement to treatment plan. Differential Diagnosis Unlikely herpes zoster, gout, cellulitis, superficial thrombophlebitis, lower extremity edema or deep vein thrombosis of lower extremity Lab Data Radiology Impressions Foot X-Ray 02/25/23 20:15 IMPRESSION: No acute bony injury. All radiology interpretation(s) finalized by discharge Discharge Plan Discharge Patient Disposition: Home Clinical Impression: Sprain of foot, left Condition: Stable Prescriptions: No Action bupropion HCl [Wellbutrin XL] 150 mg Tablet Extended Release 24 Hr 150 mg PO QAM gabapentin 100 mg Tablet 100 mg PO TID hydrocodone-acetaminophen 5-325 mg tablet 1 - 2 tab PO .Q4-6H Qty: 40 0RF lisinopril 2.5 mg Tablet 2.5 mg PO DAILY spironolactone 25 mg Tablet 25 mg PO DAILY atorvastatin 40 mg Tablet 40 mg PO DAILY carvedilol 12.5 mg Tablet 12.5 mg PO BID aspirin [Aspir-Low] 81 mg Tablet,Delayed Release (Dr/Ec) 81 mg PO DAILY furosemide 40 mg Tablet 40 mg PO QAM PRN (Reason: swelling) nitroglycerin 0.4 mg Tablet, Sublingual 0.4 mg SUBLINGUAL Q5M magnesium citrate Solution 150 ml PO Q8H PRN (Reason: constipation) Qty: 296 0RF Discharge Orders: Discharge ED (Routine); Ordered 02/25/23 Ordered By: Rozina Hilliard Other Ambulatory Orders: DME: Miscellaneous (Order) Facility: [facility] - Location: Emergency Room Ordered By: Rozina Hilliard Referrals: Jose Win MD [Primary Care Provider] - Discharge Diet: Usual diet Discharge Activity: Limit activity as instructed Patient Instructions: Foot Sprain (ED) Activity Restrictions/Additional Instructions: X-ray today was read negative for signs of bony abnormality however, given the location of your discomfort and the mechanism of injury most likely have a midfoot sprain resulting in overstretching of the connective tissues in this region. It can be tender and sore still for approximately 1 week we do recommend conservative treatment at this time. We recommend keeping up and elevated is much as possible and applying ice for 15 to 20 minutes, multiple times throughout the day. Use your chronic pain medications as needed to help with discomfort. We also provided you a walking boot to help alleviate direct pressure from ambulation. However, if you continue to have the same amount of pain or difficulty with ambulation after 1 week of conservative management at home we do recommend being seen and reevaluated again by your primary care doctor as repeat films may be warranted for reevaluation of your injury. Coding Level of Care Code ED Soliciting Freight Agent for Fritz Martinez
== END 2023-02-25 22:02 | disposition home or self-care (01) ==
PROVIDERS: Emergency Provider Physician Assistant; PCP Family Medicine
DX: S93.602A Unspecified sprain of left foot, initial encounter (principal); Z79.82 Long term (current) use of aspirin; Z72.0 Tobacco use; X50.1XXA Overexertion from prolonged static or awkward postures, initial encounter
CPT/HCPCS: 73630; 99283

== ENCOUNTER 2023-04-05 09:28 | Outpatient (CLI) | payer MEDICARE, MEDICAID, SELFPAY ==
--- NOTE | 2023-04-05 09:31 | CT_ITS ---
WS: [id number] LDCT LUNG CANCER SCREENING TECHNIQUE: Noncontrast CT of the chest with coronal and sagittal reformatted images. CLINICAL INFORMATION: NICOTINE DEPENDENCE,CIGARETTES COMPARISON: None. DLP: 46.99 mGy.cm DIvol: Mean CTDIvol: 0.70 (mGy) All CT scans at [facility] use at least one of these dose optimization techniques: automat ed exposure control; mA and/or kV adjustment per patient size (includes targeted exams where dose is matched to clinical indication); or iterative reconstruction. FINDINGS: Fibrosis in the lung apices. Subsegmental atelectasis in the LEFT greater than RIGHT lower lobes. Moderate chronic emphysematous changes. No suspicious pulmonary parenchymal abnormalities. Cardiac pacer AICD. Mild aortic calcification. Coronary calcification. No mediastinal or hilar lympha denopathy. No axillary lymphadenopathy. Normal GE junction. IMPRESSION: CT/CT lung screening [id number] LUNG-RADS: 1-Negative FOLLOW UP: 12 Month: Continue annual screening with LDCT
== END 2023-04-05 09:29 | disposition home or self-care (01) ==
LOC: RAD 09:29
PROVIDERS: PCP Family Medicine; Visit Provider Family Medicine
DX: F17.210 Nicotine dependence, cigarettes, uncomplicated (principal); Z95.810 Presence of automatic (implantable) cardiac defibrillator; I25.10 Atherosclerotic heart disease of native coronary artery without angina pectoris
CPT/HCPCS: 71271